=== PATIENT | female | born 1995 | race Caucasian/White ===

== ENCOUNTER 2023-07-27 19:00 | Inpatient (IN) | payer OTHER ==
[2023-07-27] MEDS ORDERED: ELECTROLYTE-148 SOLN 1,000 ML IV SCH (19:13)
[2023-07-27] MEDS ORDERED: AMPICILLIN - 2 GM in SODIUM CHLORIDE 100 ML IVPB ONE (19:35)
[2023-07-27] MEDS ORDERED: OXYTOCIN 20 UNITS in 0.9% NS 20 UNIT/1,000 ML INFUS.BAG IV ONE (19:49)
[2023-07-27] MEDS ORDERED: LIDOCAINE HCL 1% PRESERVATIVE FREE - 30ML VIAL ONE (19:49)
[2023-07-27] MEDS ORDERED: BISACODYL 10 MG SUPP.RECT RC PRN (20:30)
[2023-07-27] MEDS ORDERED: METHYLERGONOVINE MALEATE 0.2 MG/1 ML AMP IM PRN (20:30)
[2023-07-27] MEDS ORDERED: LACTATED RINGERS SOLUTION 1,000 ML/1,000 ML INFUS.BAG IV SCH (20:30)
[2023-07-27] MEDS ORDERED: OXYTOCIN 20 UNITS in 0.9% NS 20 UNIT/1,000 ML INFUS.BAG IV SCH (20:30)
[2023-07-27] MEDS ORDERED: BENZOCAINE 20% 57 GM BOTTLE TP PRN (20:30)
[2023-07-27] MEDS ORDERED: BENZOCAINE 28 GM HEMORRHOIDAL OINTMENT TP PRN (20:30)
[2023-07-27] MEDS ORDERED: ACETAMINOPHEN 325 MG TABLET (FP) PO PRN (20:30)
[2023-07-27] MEDS ORDERED: oxyCODONE HCL 5 MG TABLET PO PRN (20:30)
[2023-07-27] MEDS ORDERED: WITCH HAZEL 50% (TUCKS) 40 PAD/JAR PAD TP PRN (20:30)
[2023-07-27] MEDS ORDERED: oxyCODONE HCL 5 MG TABLET ONE (20:50)
[2023-07-27 21:07] LABS: BASO % 0.4 % (0-2.0); EOS % 0.1 % (0-4.5); HEMATOCRIT 27.7 % (32.4-45.2); HEMOGLOBIN 8.7 GM/dL (10.7-15.3); LYMPH % 18.1 % (8-40); MCH 21.2 pg (25.7-33.7); MCHC 31.5 g/dl (32.0-36.0); MEAN CELL VOLUME 67.5 fl (80-96); MEAN PLT VOLUME 7.9 fl (7.5-11.1); MONO % 5.2 % (3.8-10.2); NEUT % 76.2 % (42.8-82.8); PLATELET COUNT 344 10^3/uL (134-434); RBC 4.11 M/mm3 (3.60-5.2); RDW 15.9 % (11.6-15.6); WHITE BLOOD COUNT 13.1 K/mm3 (4.0-10.0)
[2023-07-27 21:16] LABS: INR 0.99 (0.83-1.09); PROTHROMBIN TIME (PATIENT) 11.5 SEC (9.7-13.0)
[2023-07-27 21:18] LABS: ACTIVATED PTT 24.8 SECONDS (25.2-36.5)
[2023-07-27 21:33] LABS: POTASSIUM 3.7 mmol/L (3.5-5.1)
[2023-07-27 21:34] LABS: CALCIUM 8.3 mg/dL (8.5-10.1)
[2023-07-27 21:35] VITALS: BMI 30.4
[2023-07-27 21:35] LABS: BLOOD UREA NITROGEN 12.6 mg/dL (7-18)
[2023-07-27 21:38] LABS: ANISOCYTOSIS 2+; CREATININE 0.8 mg/dL (0.55-1.3); MACROCYTOSIS 0; OVALOCYTE 1+
[2023-07-27 22:29] LABS: HIV INTERPRETATION NEGATIVE (NEGATIVE)
[2023-07-28 01:51] VITALS: RESP 18
[2023-07-28] MEDS: IBUPROFEN 600 MG TABLET (FP) PO PRN ×3 (02:26→21:09)
[2023-07-28 09:15] LABS: BASO % 0.4 % (0-2.0); EOS % 0.2 % (0-4.5); HEMATOCRIT 25.2 % (32.4-45.2); LYMPH % 32.1 % (8-40); MCH 21.4 pg (25.7-33.7); MCHC 31.5 g/dl (32.0-36.0); MEAN CELL VOLUME 67.7 fl (80-96); MEAN PLT VOLUME 8.1 fl (7.5-11.1); MONO % 5.7 % (3.8-10.2); NEUT % 61.6 % (42.8-82.8); PLATELET COUNT 344 10^3/uL (134-434); RBC 3.72 M/mm3 (3.60-5.2); RDW 15.8 % (11.6-15.6); WHITE BLOOD COUNT 13.3 K/mm3 (4.0-10.0)
[2023-07-28] MEDS ORDERED: FERROUS SO4 325 MG TABLET (FP) PO SCH (10:00)
[2023-07-28] MEDS: PRENATAL VITAMINS W/ FOLIC ACID TABLET (FP) PO SCH (10:04)
[2023-07-28] MEDS: FERROUS SO4 325 MG TABLET (FP) PO SCH (21:09)
[2023-07-28] MEDS ORDERED: SENNOSIDES/DOCUSATE COMBO (SENNA PLUS) TABLET (UD) PO PRN (22:00)
[2023-07-29] MEDS: IBUPROFEN 600 MG TABLET (FP) PO PRN (09:26)
[2023-07-29] MEDS: PRENATAL VITAMINS W/ FOLIC ACID TABLET (FP) PO SCH (09:26)
[2023-07-29] MEDS: FERROUS SO4 325 MG TABLET (FP) PO SCH (09:26)
[2023-07-29 09:42] VITALS: BP 108/70; PULSE 76; TEMP 98
== END 2023-07-29 11:37 | disposition home or self-care (01) | DRG 560 ==
LOC: JLDR 19:00 → J3W 21:59
PROVIDERS: ADMIT Obstetrics & Gynecology; ATTEND Obstetrics & Gynecology
PROC: 0HQ9XZZ Repair Perineum Skin, External Approach (ICD-10-PCS; principal; 2023-07-27)
PROC: 10E0XZZ Delivery of Products of Conception, External Approach (ICD-10-PCS; 2023-07-27)
DX: O69.81X0 Labor and delivery complicated by cord around neck, without compression, not applicable or unspecified (principal); O77.0 Labor and delivery complicated by meconium in amniotic fluid; O70.0 First degree perineal laceration during delivery; Z3A.40 40 weeks gestation of pregnancy; Z37.0 Single live birth
CPT/HCPCS: 36415; 80048; 85025; 85610; 85730; 86780; 86850; 86900; 86901; 87389